=== PATIENT | female | born 1950 | race Asian ===

== ENCOUNTER 2019-05-23 11:17 | Day surgery (SDC) | payer OTHER ==
[~2019-05-23] VITALS: Ht 152.4 cm; Wt 54.1 kg
[~2019-05-23 11:17] MED LIST: AMLO-147 PO; ASPI-817 PO; BLOOD THINNER PO; CARV6.2579 PO
[2019-05-23 12:15] VITALS: Ht 152.4 cm; Wt 54.1 kg
[2019-05-23 13:15] VITALS: BP 176/79; PULSE 87; RESP 18
[2019-05-23] MEDS ORDERED: PROPOFOL 40 ML ONE (13:20)
[2019-05-23] MEDS ORDERED: PROPOFOL 200 MG INJ ONE (13:20)
[2019-05-23] MEDS ORDERED: LIDOCAINE 2% (SDV) 5 ML INJ ONE (13:20)
[2019-05-23 14:15] VITALS: BP 112/55; PULSE 80; RESP 18
== END 2019-05-23 16:49 | disposition home or self-care (01) ==
LOC: GIL 11:17
PROVIDERS: ATTEND Internal Medicine Gastroenterology
DX: Z12.11 Encounter for screening for malignant neoplasm of colon (principal); D12.2 Benign neoplasm of ascending colon; K64.8 Other hemorrhoids; I10 Essential (primary) hypertension
CPT/HCPCS: 45380; 88305; Z7610